=== PATIENT | male | born 1995 | race Caucasian/White ===

== ENCOUNTER 2017-09-12 20:34 | Emergency (ER) | payer BC, SELFPAY ==
[2017-09-12] VITALS (8 sets, daily range): BP systolic 112–130; BP diastolic 60–74; PULSE 58–94; RESP 16–20; TEMP 37.2; O2SAT 95–100; BMI 21.4
[2017-09-12] MEDS: 0.9% Normal Saline 1,000 ML 250 ML IV (21:02)
[2017-09-12] MEDS: Ondansetron 4 MG/2 ML Vial IV (21:03)
[2017-09-12] MEDS: Morphine 4 MG/ML Syringe IV ×2 (21:04→21:51)
--- NOTE | 2017-09-12 21:20 | RAD_ITS ---
STUDY: X-RAY - RIGHT SHOULDER REASON FOR EXAM: Male, 21 years old. WATER SKIING ACCIDENT, LEFT SHOULDER INJURY TECHNIQUE: 2 view(s) of the shoulder. COMPARISON: None. FINDINGS: Medial shoulder dislocation. Normal acromioclavicular joint. Normal acromion. Normal humeral head and visualized proximal humerus. The soft tissue structures are unremarkable. Normal visualized pulmonary apex. RAD/Shoulder min 2 Views IMPRESSION: Medial shoulder dislocation. Electronically Signed: Mansoor Mabyerry MD at 22:25 EDT , Service support ,
--- NOTE | 2017-09-12 21:41 | RAD_ITS ---
STUDY: X-RAY - LEFT SHOULDER REASON FOR EXAM: Male, 21 years old. Post reduction TECHNIQUE: 2 view(s) of the shoulder. COMPARISON: None. FINDINGS: Normal glenohumeral articulation. Normal acromioclavicular joint. Normal acromion. Normal humeral head and visualized proximal humerus. The soft tissue structures are unremarkable. Normal visualized pulmonary apex. RAD/Shoulder min 2 Views IMPRESSION: Successful reduction Electronically Signed: Mansoor Mayberry MD at 22:26 EDT , Service support ,
[2017-09-12] MEDS: 0.9% Normal Saline 1,000 ML 1000 ML IV (21:50)
[2017-09-12] MEDS: Propofol 200 MG/20 ML Vial IV BOLUS (22:00)
--- NOTE | 2017-09-12 22:37 | ED.VISSUMM ---
- ER Visit Summary Date of Service: 09/12/17 Chief Complaint: Left shoulder dislocation History of Present Illness: The patient is a [address] Feliz. He is right-hand dominant. Reports that while waterskiing today he fell and injured his left shoulder. He denies any other injuries. No loss of consciousness. Reports it is sharp, throbbing pain is 10 out of 10 with movement 9 out of 10 at rest. Denies any paresthesias distally. Physical Examination: Vitals: Stable. Afebrile. Neck: No vertebral tenderness. Full ROM without difficulty. Cleared by NEXUS criteria. Back: No vertebral tenderness. General: A&O x 3. NAD. Cardiovascular exam: Regular rate and rhythm, no murmur, rub or gallop. Respiratory exam: Chest nontender. No crepitus. Clear to auscultation bilaterally. No wheezes or stridor. Abdominal exam: Soft, nontender, nondistended, normal bowel sounds. No pain in RUQ or LUQ specifically. No peritoneal signs. Extremity: Obvious anterior dislocation of the left shoulder. He is neurovascular intact distal this.. Test Results: Left shoulder x-ray shows an anterior dislocation without fracture. Repeat x-ray shows this to be reduced without fracture. Emergency Department Course and Treatment: Patient had an IV placed. He was given morphine IV. He had procedural sedation undertaken with propofol and his shoulder was reduced. He tolerated this well. Treatment Plan: Patient be discharged in a sling and swath. Instructed to follow-up with Dr. Donovan in 1 week for another exam. Disposition: To home in improved and stable condition. Impression: 1. Left shoulder dislocation. 2. Procedural sedation. 3. Reduction left shoulder. This note was generated with [employer] dictation software. It may contain incorrect words, spelling, and punctuation that were not noted in review of the chart prior to signing ED Disposition - Plan for ED Patient: Disposition: Home or Assisted Living Chief Complaint: Disclocation Instructions: ED Dislocation Shoulder Redu Prescriptions: Hydrocodone/Acetaminophen [[place] 5-325 Tablet] 1 - 2 each PO 4X/DAY PRN PRN 3 Days #12 tablet PRN Reason: Pain Naproxen [Naprosyn] 500 mg PO BID #14 tablet Referrals: Alex Donovan MD [STAFF PHYSICIAN] - 1 Week
--- NOTE | 2017-09-12 22:41 | ED.DCSUM_ITS ---
- ER Visit Summary Date of Service: 09/12/17 Chief Complaint: Left shoulder dislocation History of Present Illness: The patient is a [address] Feliz. He is right-hand dominant. Reports that while waterskiing today he fell and injured his left shoulder. He denies any other injuries. No loss of consciousness. Reports it is sharp, throbbing pain is 10 out of 10 with movement 9 out of 10 at rest. Denies any paresthesias distally. Physical Examination: Vitals: Stable. Afebrile. Neck: No vertebral tenderness. Full ROM without difficulty. Cleared by NEXUS criteria. Back: No vertebral tenderness. General: A&O x 3. NAD. Cardiovascular exam: Regular rate and rhythm, no murmur, rub or gallop. Respiratory exam: Chest nontender. No crepitus. Clear to auscultation bilaterally. No wheezes or stridor. Abdominal exam: Soft, nontender, nondistended, normal bowel sounds. No pain in RUQ or LUQ specifically. No peritoneal signs. Extremity: Obvious anterior dislocation of the left shoulder. He is neurovascular intact distal this.. Test Results: Left shoulder x-ray shows an anterior dislocation without fracture. Repeat x-ray shows this to be reduced without fracture. Emergency Department Course and Treatment: Patient had an IV placed. He was given morphine IV. He had procedural sedation undertaken with propofol and his shoulder was reduced. He tolerated this well. Treatment Plan: Patient be discharged in a sling and swath. Instructed to follow-up with Dr. Donovan in 1 week for another exam. Disposition: To home in improved and stable condition. Impression: 1. Left shoulder dislocation. 2. Procedural sedation. 3. Reduction left shoulder. This note was generated with [employer] dictation software. It may contain incorrect words, spelling, and punctuation that were not noted in review of the chart prior to signing ED Disposition - Plan for ED Patient: Disposition: Home or Assisted Living Chief Complaint: Disclocation Instructions: ED Dislocation Shoulder Redu Prescriptions: Hydrocodone/Acetaminophen [[place] 5-325 Tablet] 1 - 2 each PO 4X/DAY PRN PRN 3 Days #12 tablet PRN Reason: Pain Naproxen [Naprosyn] 500 mg PO BID #14 tablet Referrals: Alex Donovan MD [STAFF PHYSICIAN] - 1 Week
[2017-09-12] MEDS: HYDROcodone Bitartrate/Apap 5/325 Tablet PO (23:15)
== END 2017-09-12 23:18 | disposition home or self-care (01) ==
PROVIDERS: Emergency Provider Emergency Medicine; Family Provider Family Medicine; PCP Family Medicine
DX: S43.085A Other dislocation of left shoulder joint, initial encounter (principal); W19.XXXA Unspecified fall, initial encounter; Y93.17 Activity, water skiing and wake boarding; Y92.838 Other recreation area as the place of occurrence of the external cause; Y99.8 Other external cause status
CPT/HCPCS: 23650; 73030; 96361; 96374; 96375; 99285; J7030; A4216; J2405

== ENCOUNTER 2017-10-30 07:30 | Outpatient (RCR) | payer BC, SELFPAY ==
--- NOTE | 2017-09-23 16:36 | HP.PTEVAL_ITS ---
Patient's Visit Information MARI ESPOSITO is a 21 year old M referred to Physical Therapy by Alex Donovan MD with a diagnosis of Anterior Dislocation of Left Shoulder. Date of Evaluation: 09/23/17 Physical Therapist: Marci Thao PT - Visit Plan Frequency: 2x /Week Duration: 3 Weeks Plan: Patient currently on 10# weight limit restriction and no reaching overhead. Therapeutic exercises and activities to target BUE strength, endurance , range of motion and flexibility, specifically scapular stabilizing muscles. Modalities and Manual as needed to decrease pain and increase ROM. Incorporate HEP to promote maintainence and independence. - Subjective Subjective: Patient presents in therapy with left shoulder weakness secondary to dislocation on 09/12/17 when water skiing. He reports occasional soreness with quick motions and soreness because not using shoulder as much. No numbness or tingling down the arm. After injury drove 3 hours to the hospital to put it into place. X-ray performed showing no break but plan for MRI in a few weeks after therapy. Doctor gave a 10# weight restriction and not to lift anything overhead. He still sleeps with a sling on and has trouble washing his back. Does not take medication, ice or heat to help relieve soreness. Patient would like to get strong enough to bow bustillo in the fall. 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 PMHx: Unremarkable; Broke Left elbow 10+ years ago. - Pain left shoulder Pain Intensity (Out of 10): 0 - Objective Posture: Sitting upright in chair; left shoulder inward rotation and right shoulder squared. Palpation: Tenderness to bicep tendon proximal insertion and pectoralis muscle toward insertion; No swelling noted; Good AC joint mobility. Strength: BUE grossly 5/5 except L shoulder ER 4-/5, L shoulder IR 4-/5, left shoulder abduction 4/5, rhomboids 4/5 bilaterally, lower trap 3+/5 bilaterally. Range of Motion: L shoulder flexion 130*, L shoulder abduction 135*, L shoulder extension 40*, L ER 50*, L IR 90*; R shoulder flexion 190*, R shoulder abduction 180*, R shoulder extension 80*, R ER 90*, R IR 95*; Good mobility of B scapula with moderate winging; PROM L shoulder increase in ROM 5* in abduction and flexion. Flexibility: Moderate tightness of Bilateral pectoralis muscles. Special Test: See below; Apprehension test positive for anterior instability - Special Tests L Shoulder External Rotation Lag Test - RC Tear: Negative L Shoulder Lift Off Test - Subscapular Tear: Negative L Shoulder Empty Can - SS: Negative L Shoulder Biceps Load Test - Labrum: Negative L Shoulder Apprehension Test - Anterior Instability: Positive - Goals Goal 1:: Patient will increase scapular stabilizing muscles grossly 4+/5 strength for improved scapular mobility and performance with functional mobility tasks Goal Time Frame: 2-4 Weeks Goal 2:: Patient will increase L shoulder mobility to match R for improved mobility. Goal Time Frame: 2-4 Weeks Goal 3:: Patient will demonstrate minimal scapular winging with repeated shoulder abduction for improved stability Goal Time Frame: 2-4 Weeks Goal 4:: Patient will maintain good posture for 5 minutes with no prompting Goal Time Frame: 2-4 Weeks Goal 5:: Patient will be independent with HEP Goal Time Frame: 2-4 Weeks - Rehabilitation Potential Physical Therapy Diagnosis: Muscle Weakness, Limited Range of Motion Rehabilitation Potential: Good - Anticipated Interventions Patient/Client Instruction: Educate patient on: Condition, Plan of Care For the Purpose of:: To increase ROM, To improve muscle performance and motor function, To improve ability to perform ADL's, To increase tolerance to activity /condition/position, To improve ability of physical actions for home/community/ work/leisure, To increase flexibility/ROM, To improve endurance, To prevent re- injury Therapeutic Exercise to Include: Strength training, Endurance training, Body mechanics, Postural training, Flexibilty training, Neuromotor development, Passive ROM, Active ROM, Scapular Strength/Stabilization For the Purpose of:: To increase ROM, To improve muscle performance and motor function, To improve performance and independence with ADL's, To improve ability of physical actions for home/community/work/leisure, To increase flexibility/ROM, To improve endurance, To prevent re-injury Functional Training to Include: ADL Training, Functional work training, Functional sports training For the Purpose of:: To improve muscle performance and motor function, To improve performance and independence with ADL's, To improve ability of physical actions for home/community/work/leisure, To prevent re-injury For the Purpose of:: To decrease pain, To decrease swelling/inflammation, To increase ROM Iontophoresis (with Dexamethozone, with Acetic acid): - not covered by insurance For the Purpose of:: To decrease pain, To decrease swelling/inflammation, To increase ROM Thank you for the opportunity to evaluate your patient. For Medicare and Medicare HMO plans, please review the plan of care and approve it. It will need to be FAXED BACK to us at [phone] for Medicare purposes. Please let me know if there are questions or concerns regarding this plan of care. Physician Signature: Date:
--- NOTE | 2017-10-30 07:53 | HP.PTDCSUM ---
HP - PT D/C Summary It has been my pleasure to treat MARI ESPOSITO under orders from Alex Donovan MD, for the diagnosis of Anterior Dislocation of Left Shoulder for a total of 6 visit(s). Discharge Date: Please see the following information for a summary of their discharge status. - Subjective Subjective: Pt reports, I feel like I am back to normal - Pain left shoulder Pain Intensity (Out of 10): 0 - Overall Improvement % Improvement: 100 - Objective Objective/Function: L shoulder pain: 0/10. L shoulder ROM: flex= 165, abd= 180, ER= 45, IR WNL. L shoulder MMT: 5/5 throughout. Pt is I with HEP. Rx goals achieved - Goals Goal 1:: Patient will increase scapular stabilizing muscles grossly 4+/5 strength for improved scapular mobility and performance with functional mobility tasks Goal 2:: Patient will increase L shoulder mobility to match R for improved mobility. Goal 3:: Patient will demonstrate minimal scapular winging with repeated shoulder abduction for improved stability Goal 4:: Patient will maintain good posture for 5 minutes with no prompting Goal 5:: Patient will be independent with HEP - Plan Plan: Discharge - D/C Information If there are questions or concerns regarding this patient's physical therapy, please feel free to call me at [phone]. Thank you for the referral of this patient. Sincerely, Mansoor Montenegro, PT,
== END 2017-10-30 10:36 | disposition home or self-care (01) ==
LOC: PT 07:30
PROVIDERS: Family Provider Family Medicine; PCP Family Medicine; Visit Provider Specialist
DX: S43.015D Anterior dislocation of left humerus, subsequent encounter (principal)
CPT/HCPCS: 97110; 97140; 97161; 97530

== ENCOUNTER → 2018-09-22 | Outpatient (CLI) | payer BC, SELFPAY ==
[2017-09-12 20:35] VITALS: BMI 21.4
[2018-09-22 15:23] LABS: Hematocrit 42.2 % (40-54); Hemoglobin 14.6 g/dl (13.0-16.5); Mean Corp Hgb Conc 34.6 g/gl (32-36); Mean Corpuscular Hgb 29.6 pg (27.0-32.0); Mean Corpuscular Volume 85.6 fL (80-94); Mean Platelet Vol. 10.2 fl (6.2-12.0); Platelet Count 222 K/mm3 (150-450); RBC Distribution Width CV 12.4 % (11.6-14.6); Red Blood Count 4.93 M/mm3 (4.6-6.2); White Blood Count 6.3 K/mm3 (4.4-11.0)
[2018-09-22 15:38] LABS: Vitamin B12 643 pg/mL (211-911)
[2018-09-22 15:41] LABS: Anion Gap 4 (5-15); BUN 14 mg/dL (7-18); BUN/Creat Ratio 15.1 RATIO (10-20); Chloride 107 mmol/L (98-107); Creatinine, Serum 0.92 mg/dL (0.70-1.30); EST Glomerular Filtration Rate 109 mL/min (>60); Est Glom Filt Rate - Afr Amer 132 mL/min (>60); Glucose 92 mg/dL (74-106); Potassium 3.6 mmol/L (3.5-5.1); Sodium Level 140 mmol/L (136-145); Thyroid Stim Hormone (TSH) 1.25 uIU/mL (0.358-3.74)
[2018-09-22 15:46] LABS: Scan Indicated on CBC? Y/N NO
== END | disposition home or self-care (01) ==
LOC: MFPLAB 14:15
PROVIDERS: Family Provider Family Medicine; PCP Family Medicine; Visit Provider Family Medicine
DX: F32.9 Major depressive disorder, single episode, unspecified (principal)
CPT/HCPCS: 36415; 80048; 82306; 82607; 84443; 85027

== ENCOUNTER → 2019-07-16 16:04 | Outpatient (CLI) | payer BC, SELFPAY ==
--- NOTE | 2019-07-16 16:10 | RAD_ITS ---
STUDY: X-RAY - LEFT TIBIA AND FIBULA REASON FOR EXAM: Male, 23 years old. PAIN PROXIMAL LEFT LOWER LEG MEDIALLY. TECHNIQUE: 2 view(s) of the tibia and fibula were obtained. COMPARISON: None. FINDINGS: Normal visualized tibia. Normal visualized fibula. There is no demonstrated acute fracture. The soft tissue structures are unremarkable. RAD/Tibia & Fibula 2 Views IMPRESSION: Normal x-ray examination of the tibia and fibula. Electronically Signed: Too Hylton MD at 17:07 EDT , Service support ,
== END ==
PROVIDERS: PCP Family Medicine; Referring Provider Family Medicine; Visit Provider Family Medicine
DX: M79.605 Pain in left leg (principal)
CPT/HCPCS: 73590

== ENCOUNTER 2021-07-09 03:24 | Emergency (ER) | payer OTHER, SELFPAY ==
[2021-07-09 03:24] VITALS: BP 123/69; PULSE 58; RESP 16; TEMP 36.7; O2SAT 100; BMI 27.5
--- NOTE | 2021-07-09 03:36 | EDS_ITS ---
HPI History of Present Illness Chief Complaint: Burn Narrative Narrative: 25-year-old male [id number] presenting with left hand burn. Patient states he picked up a hot log. He has moraes to the left thumb palmar surface and left index finger and palm. Patient tried to use aloe vera without relief. He has been icing it. He does not have any blistering. Its not numb. He took ibuprofen for pain prior to arrival. PFSH PFS Medical History no medical history Home Medications lidocaine 1 applic TOPICAL BID PRN #30 g 07/09/21 [Rx Last Taken Unknown] silver sulfadiazine 1 applic TOPICAL BID #50 g 07/09/21 [Rx Last Taken Unknown] Allergy/AdvReac Type Severity Reaction Status Date / Time No Known Allergies Allergy Verified 07/09/21 03:30 Surgical History no surgical history Social History Smoking Status: Never smoker ROS ROS ED Constitutional Constitutional ED: Denies chills or fever(s) Eyes Eyes: Denies blurry vision ENT ENT ED: Denies rhinorrhea or sore throat Cardiovascular Cardiovascular: Denies chest pain or palpitations Respiratory/Chest Respiratory/Chest: Denies cough or dyspnea Gastrointestinal Gastrointestinal: Denies abdominal pain or nausea Genitourinary Genitourinary ED: Denies dysuria or hematuria Musculoskeletal Musculoskeletal: Denies back pain, myalgias or neck pain Integumentary Reports other Details: Burn left hand Neurologic Neurologic: Denies headache(s) or weakness EXAM Physical Exam Const Vital Signs: 07/09/21 03:24 07/09/21 03:28 Temperature 98.1 F Temperature Source Oral Pulse Rate 58 L Respiratory Rate 16 Respiratory Effort Normal Non-Labored Blood Pressure 123/69 H Blood Pressure Mean 87 Pulse Ox 100 Oxygen Delivery Method Room Air Positive well nourished General Appearance ED: NAD HEENT normocephalic and atraumatic Eyes PERRL and EOMs intact bilaterally Resp normal respiratory effort and clear to auscultation bilaterally Cardio regular rate and regular rhythm Extremity Extremity Narrative: Left hand palmar surface laterally with a mixture of first and second-degree moraes with blistering at the palmar surface adjacent to the MCP and over the left thumb. Sensation is intact. No skin breaks. Left hand neurovascular intact brisk cap refill to all 5 fingers. Neuro oriented x3 Sensorium / Orientation: alert Psych mental status grossly normal Skin Skin Narrative: As described above MDM MDM MDM Narrative Medical decision making narrative: Patient can cover with silver sulfadiazine in the ER. He is counseled to use ibuprofen and Tylenol for pain. He is given a prescription for silver sulfadiazine as well as lidocaine cream which he can mix when he puts over his hand. He can put his hand into a rubber glove as well. He is counseled to ice this is much as possible for 15 minutes at a time. He is given referral to the burn center as needed. Patient stable for discharge. Impression: 1. First, second degree moraes to left Discharge Plan Triage Chief Complaint: Burn Dx/Rx/DC Orders Instructions: ED First- and Second-Degree Moraes ... Prescriptions: New silver sulfadiazine 1 % cream 1 applic topical BID Qty: 50 RF: 0 lidocaine 5 % ointment 1 applic topical BID PRN (Reason: pain) Qty: 30 RF: 0 Primary Care Provider: Sixto Florian Referrals: [facility] ([place]),[facility] [GROUP OF PHYSICIANS] - 3-5 Days Sixto Florian MD [Primary Care Provider] - Disposition Disposition: Home, Self Care
[2021-07-09] MEDS: Silver Sulfadiazine 1% Crm 50 gm Bottle 1 APPLIC TOPICAL (03:39)
== END 2021-07-09 03:49 | disposition home or self-care (01) ==
LOC: ED 03:44
PROVIDERS: Emergency Provider Student in an Organized Health Care Education/Training Program; PCP Family Medicine; Visit Provider Student in an Organized Health Care Education/Training Program
DX: T23.252A Burn of second degree of left palm, initial encounter (principal); X19.XXXA Contact with other heat and hot substances, initial encounter
CPT/HCPCS: 99283

== ENCOUNTER 2021-08-13 00:06 | Emergency (ER) | payer OTHER, SELFPAY ==
[2021-08-13 00:06] VITALS: BP 114/97; PULSE 81; RESP 16; TEMP 36.5; O2SAT 98; BMI 21.3
--- NOTE | 2021-08-13 00:15 | EDS_ITS ---
HPI History of Present Illness HPI Narrative: Patient presents with left shoulder pain that began tonight. Patient states it began suddenly. Patient states he swung his arm and his shoulder dislocated. Patient states he has dislocated his shoulder in the past approximately 3 to 4 years ago. Patient states his pain is sharp. Patient states his pain is worse with movement. Patient admits to some numbness and tingling in the fingers of his left hand. Patient denies any weakness. Patient denies any other injuries. Chief Complaint: Upper Extremity Injury Informant: patient Occured/Mechanism Comment: Swelling his left arm and felt his shoulder dislocate Onset/Context/Timing Context: Sudden Onset Timing: Continuous Quality of Pain: Sharp Location: Left shoulder Worsened by: Movement Relieved by: Nothing Associated Symptoms Associated Symptoms: Positive for Parasthesia; Negative for Weakness and Loss of Funtion [facility] Medical History Dislocation of shoulder, posterior, left, closed Home Medications lidocaine 1 applic TOPICAL BID PRN #30 g 07/09/21 [Rx Last Taken Unknown] silver sulfadiazine 1 applic TOPICAL BID #50 g 07/09/21 [Rx Last Taken Unknown] Allergy/AdvReac Type Severity Reaction Status Date / Time No Known Allergies Allergy Verified 07/09/21 03:30 Surgical History no surgical history no surgical history Social History Smoking Status: Never smoker ROS ROS ED Constitutional Constitutional ED: Denies chills or fever(s) Eyes Eyes: Denies blurry vision or change in vision ENT ENT ED: Denies rhinorrhea or sore throat Cardiovascular Cardiovascular: Denies chest pain or palpitations Respiratory/Chest Respiratory/Chest: Denies cough or dyspnea Gastrointestinal Gastrointestinal: Denies nausea or vomiting Genitourinary Genitourinary ED: Denies dysuria or hematuria Musculoskeletal Musculoskeletal: Denies back pain or neck pain Integumentary Denies abscess or rash Neurologic Neurologic: Denies headache(s) or weakness Allergic/Immunologic Allergic/Immunologic ED: Denies mouth swelling or urticaria EXAM Physical Exam Const Vital Signs: 08/13/21 00:06 Temperature 97.7 F L Temperature Source Temporal Pulse Rate 81 Respiratory Rate 16 Blood Pressure 114/97 H Blood Pressure Mean 102 Pulse Ox 98 Oxygen Delivery Method Room Air Positive well nourished and well developed General Appearance ED: well developed and NAD HEENT Reports moist mucous membranes normocephalic Neck full ROM and supple Extremity Extremity Narrative: There is tenderness and deformity of the left shoulder joint. Range of motion was limited in all motions of the left shoulder secondary to pain. There is no tenderness over the clavicle. There is no edema or ecchymosis. Sensation was intact to light touch in the radial, median, ulnar, and axillary areas. Strength is 5/5 in the radial, median, and ulnar areas. Radial pulses are equal bilaterally. Neuro oriented x3, CN's II-XII intact bilaterally, moves all extremities, no focal motor deficits and no sensory deficits noted Sensorium / Orientation: alert Motor Exam: strength 5/5 throughout Psych mental status grossly normal MDM MDM MDM Narrative Medical decision making narrative: Patient was given a dose of Dilaudid here. Patient was given a repeat dose of Dilaudid. X-rays of the left shoulder were obtained. There are 2 views. On my interpretation, it showed an anterior inferior dislocation of the left glenohumeral joint. There is no acute fracture. Radiologist also interpreted the x-ray and agrees. Patient was advised the need for sedation and reduction of the shoulder. Patient states she has had this done before. Patient was given the opportunity ask questions. He had no further questions. Patient is agreeable to sedation. Informed consent was obtained. Patient was placed on continuous cardiac and pulse oximeter monitors. Patient was placed on nasal cannula oxygen. Patient was given a total of 80 mg of propofol. Once the patient was asleep, the shoulder was reduced using traction countertraction technique. The shoulder was reduced adequately. Patient was placed in a sling and swath. Total time of sedation was 10 minutes. Repeat x-rays were obtained. There are 2 views. On my interpretation, there is good reduction of the previous dislocation. There is no acute fracture. Radiologist also interpreted the x-rays and agrees. Patient was instructed to maintain the sling and swath while awake. Patient was instructed to follow-up with his primary care physician in 5 to 7 days. Patient understood and was agreeable with the plan. All questions were answered. Procedures Other Procedures Procedure(s): Patient was placed on continuous cardiac and pulse oximeter monitors. Patient was given a dose of propofol. Patient was given 80 mg. After the patient was adequately sedated, the left glenohumeral joint was reduced using traction countertraction technique. Patient tolerated the procedure well. There were no hypoxic episodes. Patient was placed in a sling and swath. Total time of sedation was 10 minutes. Patient was neurovascularly intact after the procedure. Repeat x-rays were obtained and showed adequate reduction. Discharge Plan Triage Chief Complaint: Upper Extremity Injury ED Provider: Roebrt Tan Dx/Rx/DC Orders Clinical Impression: Anterior dislocation of left shoulder Instructions: ED Dislocation: Shoulder (Reduced) Prescriptions: No Action silver sulfadiazine 1 % cream 1 applic topical BID Qty: 50 RF: 0 lidocaine 5 % ointment 1 applic topical BID PRN (Reason: pain) Qty: 30 RF: 0 Primary Care Provider: Sixto Florian Referrals: Sixto Florian MD [Primary Care Provider] - 5-7 Days Disposition Disposition: Home, Self Care
--- NOTE | 2021-08-13 00:20 | RAD_ITS ---
EXAM: XR LEFT SHOULDER COMPLETE, 2 OR MORE VIEWS CLINICAL INDICATION: Injury/Pain TECHNIQUE: Two or more views of the left shoulder. This report was created using [employer] report generation technology. COMPARISON: None. FINDINGS: BONES/JOINTS: Anterior inferior dislocation left shoulder. No acute fracture. No sclerotic or destructive changes observed. SOFT TISSUES: Unremarkable. No soft tissue swelling or gas. No radiopaque foreign body. RAD/Shoulder min 2 Views IMPRESSION: Anterior inferior dislocation left shoulder. Electronically Signed: Raimundo Carlson MD at 1:01 EDT ,
[2021-08-13] MEDS: HYDROmorphone 0.5 MG/0.5 ML SYRINGE IV (00:29)
[2021-08-13] MEDS: HYDROmorphone 1 MG/ML Syringe 0.5 MG IV (01:27)
[2021-08-13 02:09] VITALS: BP 108/72; BP 110/78; BP 111/76; PULSE 76; PULSE 83; PULSE 85; RESP 16; RESP 18; RESP 20; O2SAT 100; O2SAT 96; O2SAT 97
--- NOTE | 2021-08-13 02:13 | RAD_ITS ---
EXAM: XR LEFT SHOULDER COMPLETE, 2 OR MORE VIEWS CLINICAL INDICATION: Post reduction. TECHNIQUE: Two or more views of the left shoulder. This report was created using [employer] report generation technology. COMPARISON: None. FINDINGS: BONES/JOINTS: Normal alignment of the left shoulder post reduction. No acute fracture. Preservation of the joint space. No sclerotic or destructive changes observed. SOFT TISSUES: See above. RAD/Shoulder min 2 Views IMPRESSION: Normal alignment of the left shoulder post reduction. Electronically Signed: Raimundo Carlson MD at 2:31 EDT ,
[2021-08-13 02:22] VITALS: BP 111/76; O2SAT 96
[2021-08-13 02:47] VITALS: BP 106/61; PULSE 77; RESP 16
[2021-08-13] MEDS: Propofol 200 MG/20 ML Vial IV BOLUS (02:55)
[2021-08-13 02:57] VITALS: BP 106/61; PULSE 77; RESP 16
== END 2021-08-13 02:57 | disposition home or self-care (01) ==
PROVIDERS: Emergency Provider Emergency Medicine; PCP Family Medicine; Referring Provider Emergency Medicine; Visit Provider Emergency Medicine
DX: S43.015A Anterior dislocation of left humerus, initial encounter (principal); X58.XXXA Exposure to other specified factors, initial encounter
CPT/HCPCS: 23650; 73030; 96374; 96376; 99152; 99283; J7030; A4216

== ENCOUNTER 2022-09-26 21:42 | Emergency (ER) | payer OTHER, SELFPAY ==
[2022-09-26 21:44] VITALS: BP 122/90; PULSE 99; RESP 18; TEMP 36.6; O2SAT 99; BMI 22.7
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
[2022-09-26] MEDS: fentaNYL 100 MCG/2 ML Ampul 50 MCG IM (22:11)
--- NOTE | 2022-09-26 22:35 | RAD_ITS ---
EXAM: XR LEFT SHOULDER COMPLETE, 2 OR MORE VIEWS CLINICAL INDICATION: postreduction -- PORT TECHNIQUE: Two or more views of the left shoulder. COMPARISON: 09/26/2022 at 2205 hours FINDINGS: BONES/JOINTS: Humeral head has been relocated into the glenoid fossa. Alignment is anatomic. No acute fracture. Preservation of the joint space. No sclerotic or destructive changes observed. SOFT TISSUES: Unremarkable. No soft tissue swelling or gas. No radiopaque foreign body. RAD/Shoulder min 2 Views IMPRESSION: Closed reduction of a left shoulder dislocation. Alignment is anatomic. Electronically Signed: Roscoe Baker MD at 23:20 EDT ,
== END 2022-09-26 22:52 | disposition home or self-care (01) ==
PROVIDERS: Emergency Provider Emergency Medicine; PCP Family Medicine; Visit Provider Emergency Medicine
DX: S43.015A Anterior dislocation of left humerus, initial encounter (principal); X50.9XXA Other and unspecified overexertion or strenuous movements or postures, initial encounter; Y93.89 Activity, other specified
CPT/HCPCS: 23650; 73030; 96372; 99282

== ENCOUNTER 2022-12-13 18:34 | Emergency (ER) | payer OTHER, SELFPAY ==
[2022-12-13 18:35] VITALS: BP 130/91; PULSE 87; RESP 18; TEMP 36.6; O2SAT 99; BMI 23.9
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
== END 2022-12-13 21:32 | disposition home or self-care (01) ==
PROVIDERS: Emergency Provider Emergency Medicine; PCP Family Medicine; Visit Provider Emergency Medicine
DX: S06.0X0A Concussion without loss of consciousness, initial encounter (principal); H53.8 Other visual disturbances; Y04.8XXA Assault by other bodily force, initial encounter
CPT/HCPCS: 70450; 99282; J7030

== ENCOUNTER → 2023-01-08 | Outpatient (CLI) | payer OTHER, SELFPAY ==
--- NOTE | 2023-01-08 11:44 | RAD_ITS ---
CLINICAL HISTORY: Male, 27 years old. Left shoulder instability. PROCEDURE: ARTHROGRAM - LEFT SHOULDER. CONSENT: The procedure as well as the benefits and possible complications including infection and bleeding were explained to the patient. Informed consent was obtained. FLUOROSCOPY TIME (if supplied): (36 seconds) minutes/seconds. 8.21 mGy Injection Information: 10 cc of dilute MR contrast Number of images obtained: 3 TECHNIQUE: (All elements of maximal sterile barrier technique followed, including US elements as applicable) The patient was in the supine position. The overlying skin was prepped and draped in usual sterile fashion. Following local anesthetic application and under direct fluoroscopic guidance, a 22-gauge spinal needle was placed into the shoulder joint. 2 cc of Isovue 300 was injected for confirmation. Following this, 10 cc of dilute MRI contrast was injected. The patient tolerated the procedure well. RAD/Arthrogram Shoulder w/ MRI IMPRESSION: Left shoulder arthrogram for MRI examination. The patient tolerated the procedure well. Electronically Signed: Maxime Dolan MD at 12:47 EDT ,
--- NOTE | 2023-01-08 11:56 | MRI_ITS ---
STUDY: MRI ARTHROGRAM OF THE LEFT SHOULDER REASON FOR EXAM: Male, 27 years old. Instability, multiple dislocations x 5 years. TECHNIQUE: 10 mL of dilute Clariscan contrast was injected into the left glenohumeral joint. MRI was obtained in all 3 orthogonal planes. In addition, a fat-suppressed T1-weighted sequence was performed with the patient''s arm in the abduction external rotation (ABER) position. COMPARISON: Left shoulder radiographs dated 09/26/2022. FINDINGS: Normal supraspinatus tendon. Normal infraspinatus tendon. Normal subscapularis tendon. Normal teres minor tendon. Normal supraspinatus muscle. Normal infraspinatus muscle. Normal subscapularis muscle. Normal teres minor muscle. There is a chronic Hill-Sachs deformity of the posterior superior humeral head (axial T1 series 2 image 7). 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 Normal biceps labral complex. Normal intracapsular long biceps tendon. Normal rotator interval. There is mild acromioclavicular arthrosis. There is a Type II morphology (curved), with a neutral orientation. There is no subacromial-subdeltoid bursal fluid. Normal visualized coracohumeral and coracoacromial ligaments. Normal quadrilateral space. Normal axillary space. Normal deltoid muscle. Normal trapezius muscle. MRI/Upper Ext Jt Only W/Contrast IMPRESSION: Chronic Hill-Sachs deformity of the posterior superior humeral head. 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 Mild acromioclavicular arthrosis. No rotator cuff tear. Electronically Signed: Donald Esquivel MD at 14:34 EDT ,
[2023-01-08] MEDS: Gadoterate Meglumine Diluted 10 ML, Iopamidol 5 ML, Lidocaine 1% (20 ml mdv) 5 ML, Epin... INTRAARTIC (12:10)
[2023-01-08] MEDS: Iopamidol 10 ML in Syringe 1 EACH 600 ML INTRAARTIC (12:10)
[2023-01-08] MEDS: Lidocaine 2% (5ml sdv) 5 ML VIAL.MPF INFILT (12:10)
--- NOTE | 2023-01-08 12:55 | PCM.OP.PRO ---
Procedure Report Date of Procedure: 01/08/23 Assessment & Plan Assessment/Plan (1) Instability of left shoulder joint: PLAN: PROCEDURE: Arthrogram-left shoulder ORDERING PROVIDER: Dr. Tran INDICATION: Male, 27 years old. Left shoulder instability. PROVIDER: Kriss HOLLINS PROCEDURE: CONSENT: The procedure as well as the benefits and possible complications including bleeding and infection were explained to the patient. Informed consent was obtained. TECHNIQUE: The patient was in the supine position. The overlying skin was prepped and draped in the usual sterile fashion. 2% lidocaine was injected for local anesthesia and under direct fluoroscopic guidance, a 22-gauge spinal needle was placed into the left shoulder. 2 cc of Isovue 300 was injected for confirmation. Following this, 10 cc of MRI contrast was injected. All elements of maximal sterile barrier technique followed. Patient tolerated procedure well. IMPRESSION: Successful left shoulder arthrogram. Procedures Radiology Radiology Xray Procedures: [id number] Arthrogram Shoulder
== END | disposition home or self-care (01) ==
LOC: RAD 11:41
PROVIDERS: PCP Family Medicine; Referring Provider Orthopaedic Surgery Sports Medicine; Visit Provider Orthopaedic Surgery Sports Medicine
DX: M25.312 Other instability, left shoulder (principal)
CPT/HCPCS: 23350; 73222; 77002; Q9967

== ENCOUNTER 2023-02-24 20:42 | Emergency (ER) | payer OTHER, SELFPAY ==
[2023-02-24 20:42] VITALS: BP 123/88; PULSE 84; RESP 18; TEMP 36.1; O2SAT 99; BMI 23.3
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
[2023-02-24] MEDS: fentaNYL 100 MCG/2 ML Ampul 75 MCG IM (22:34)
--- NOTE | 2023-02-24 23:00 | RAD_ITS ---
INDICATION: dislocation EXAMINATION/TECHNIQUE: X-RAY - LEFT XR Shoulder Min 2 Views 2 VIEWS COMPARISON: Left shoulder x-rays September 26, 2022. FINDINGS: SOFT TISSUES: No soft tissue swelling or gas. No radiopaque foreign body. BONES/JOINTS: No acute fracture or malalignment. Humeral head is anterior and inferior to the glenoid; anterior shoulder dislocation. No sclerotic or destructive changes observed. RAD/Shoulder min 2 Views IMPRESSION: Anterior shoulder dislocation. No appreciable fracture. This represents a recurrent dislocation. Consider follow-up MRI to assess for soft tissue injuries associated with instability. Electronically Signed: Raimundo March DO at 23:58 EST ,
--- NOTE | 2023-02-24 23:10 | RAD_ITS ---
INDICATION: postreduction EXAMINATION/TECHNIQUE: X-RAY - LEFT XR Shoulder Min 2 Views 2 VIEWS COMPARISON: February 24, 2023 left shoulder x-rays, 11:00 PM. FINDINGS: SOFT TISSUES: No soft tissue swelling or gas. No radiopaque foreign body. BONES/JOINTS: Postreduction images show normal glenohumeral alignment. There is a questionable small Hill-Sachs impaction fracture involving the humeral head. Glenoid without appreciable fracture. No fracture fragment. Acromioclavicular joint is normal. No sclerotic or destructive changes observed. RAD/Shoulder min 2 Views IMPRESSION: Normal glenohumeral alignment postreduction. Questionable small impaction fracture humeral head. Consider nonemergent MRI to assess for soft tissue pathology associated with instability. Electronically Signed: Raimundo March DO at 0:00 EST ,
[2023-02-25 00:09] VITALS: BP 120/62; PULSE 80; RESP 16; O2SAT 99
== END 2023-02-25 00:11 | disposition home or self-care (01) ==
PROVIDERS: Emergency Provider Emergency Medicine; PCP Family Medicine; Referring Provider Emergency Medicine; Visit Provider Emergency Medicine
DX: S43.015A Anterior dislocation of left humerus, initial encounter (principal); X50.0XXA Overexertion from strenuous movement or load, initial encounter
CPT/HCPCS: 23650; 73030; 96372; 99282

== ENCOUNTER 2023-02-27 09:46 | Day surgery (SDC) | payer OTHER, SELFPAY ==
[2023-02-27] VITALS (9 sets, daily range): BP systolic 71–114; BP diastolic 52–78; PULSE 43–67; RESP 12–16; TEMP 36.1–36.2; O2SAT 95–100; BMI 23.5
[2023-02-27] MEDS: Lactated Ringers 1,000 ML 15 ML IV (10:16)
--- NOTE | 2023-02-27 10:31 | HP.PCM_ITS ---
HPI - General HPI Narrative MARI ESPOSITO, is a 27 M who presents for left shoulder arthroscopy, stabilization. no changes to h and p. rab and narcotic counselling. post op restrictions, sling for 2 weeks. ok to proceed, left shoulder marked. MR#: [id number] Acct: [id number] Name: MARI ESPOSITO Rep #: [id number] : 1995 Provider: Dr. Kwadwo Tran MD Age/Sex: 27/M Location: [facility] [place] Status: Signed Intake Vital Signs 12/13/2317:35 Height 5 ft 6 in Weight: 148 lb 8 oz BMI 23.9 BP 130/91 H Respiration 18 Pulse 87 Temp 97.9 F Temp Source Temporal Pulse Oximetry (%) 99 Intake Visit Reasons: LEFT SHOULDER Chief Complaint: Left shoulder Accompanied by: Self Is patient in pain?: Yes Allergies No Known Allergies Allergy (Verified 01/21/23 13:57) Medications NK 09/26/22 [History Confirmed 01/21/23] PFSH Medical History Dislocation of shoulder, posterior, left, closed Instability of left shoulder joint Social History Smoking Status: Never smoker HPI LEFT SHOULDER Details: This documentation accurately reflects the service provided and the decisions made by me, Dr. Kwadwo Tran MD 01/21/23 1351. Part of today?s visit was documented by [ ], acting as scribe. MARI ESPOSITO is a 27 year old M here today for FU L shoulder MR arthrogram for instability. Patient works doing landscaping and mowing. He wishes to return back to that by next summer. The patient has persistent instability and feels like this is really affecting his quality of life. Ortho Exam General General: Yes no acute distress Neurologic: Yes alert and Yes oriented x3 Psychologic: Yes reasonable and appropriate Supplemental Info [facility] Imaging Services [address] [place] [address] Upper Ext Jt Only W/Contrast MR#: [id number] Acct: [id number] Name: MARI ESPOSITO Rep #: [id number] : 1995 M 27 From: Donald Esquivel MD PCP: Dr. Sixto Florian MD Status: REG CLI Study: Upper Ext Jt Only W/Contrast Date of Exam: 01/08/23 Exam# [id number] Ordering Dr: Kwadwo Tran MD STUDY: MRI ARTHROGRAM OF THE LEFT SHOULDER REASON FOR EXAM: Male, 27 years old. Instability, multiple dislocations x 5 years. TECHNIQUE: 10 mL of dilute Clariscan contrast was injected into the left glenohumeral joint. MRI was obtained in all 3 orthogonal planes. In addition, a fat-suppressed T1-weighted sequence was performed with the patient''s arm in the abduction external rotation (ABER) position. COMPARISON: Left shoulder radiographs dated 09/26/2022. FINDINGS: Normal supraspinatus tendon. Normal infraspinatus tendon. Normal subscapularis tendon. Normal teres minor tendon. Normal supraspinatus muscle. Normal infraspinatus muscle. Normal subscapularis muscle. Normal teres minor muscle. There is a chronic Hill-Sachs deformity of the posterior superior humeral head (axial T1 series 2 image 7). 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 Normal biceps labral complex. Normal intracapsular long biceps tendon. Normal rotator interval. There is mild acromioclavicular arthrosis. There is a Type II morphology (curved), with a neutral orientation. There is no subacromial-subdeltoid bursal fluid. Normal visualized coracohumeral and coracoacromial ligaments. Normal quadrilateral space. Normal axillary space. Normal deltoid muscle. Normal trapezius muscle. MRI/Upper Ext Jt Only W/Contrast IMPRESSION: Chronic Hill-Sachs deformity of the posterior superior humeral head. 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 Mild acromioclavicular arthrosis. No rotator cuff tear. Electronically Signed: Donald Esquivel MD at 14:34 EDT , Coding Level of Care Code Off vis,est,level 3 Diagnoses Instability of left shoulder joint M25.312 Assessment and Plan Assessment and Plan (1) Instability of left shoulder joint: Status: Acute Plan: 27 M L shoulder instability and labrum tear with small HS of humerus head. At this point the patient has failed a trial of at least a year of nonoperative management with persistent instability and signs of a labrum tear on the MRI. Surgical recommendation for this would be left shoulder arthroscopy, stabilization. The small Hill-Sachs would not likely need to be addressed. I see no obvious bony loss on the glenoid side either. We discussed the pros and cons risk and benefits of continued nonoperative management versus surgery. The patient like to go ahead with the operation and signed the consent form today. No further questions or concerns. Pros and cons risks and benefits were discussed with the patient including but not limited to infection, pain, stiffness, bleeding, damage to surrounding structures, neurovascular injury, recurrence or retear, failure or wear of hardware or fixation, instability, fracture, deep vein thrombosis and pulmonary embolism, anesthetic risks, , patient dissatisfaction, need for further surgery and other risks. Patient understood and wished to proceed with surgery, and signed the informed consent documentation. [facility] Medical History Dislocation of shoulder, posterior, left, closed Injury of head and neck Instability of left shoulder joint Wears contact lenses Home Medications NK 09/26/22 [History Last Taken Unknown] Allergy/AdvReac Type Severity Reaction Status Date / Time No Known Allergies Allergy Verified 02/27/23 10:15 Surgical History No history of previous surgery Social History Smoking Status: Never smoker Vital Signs Vital Signs Vital Signs: 02/27/23 10:17 02/27/23 10:17 Temperature 97.1 F L Temperature Source Temporal Pulse Rate 61 Respiratory Rate 12 Respiratory Pattern Normal Blood Pressure 114/52 L Blood Pressure Mean 72 Blood Pressure Source Monitor Blood Pressure Position Semi-Fowlers Blood Pressure Location Left Arm Pulse Ox 100 Oxygen Delivery Method Room Air Weight Weight: 145 lb 8.081 oz Body Mass Index (BMI) 23.5
[2023-02-27] MEDS: Cefazolin 2 GM in 0.9% Normal Saline (100mL Bag) 100 ML IV (11:16)
[2023-02-27] MEDS: Epinephrine (1 mg/ml) 1 MG/ML VIAL (11:39)
--- NOTE | 2023-02-27 12:51 | PCM.OPRPT ---
Problems Associated Problem List Diagnoses (1) Instability of left shoulder joint: Report of Operation Date of Procedure: 02/27/23 Pre-Operative Diagnosis: L shoulder instability labrum tear anteriorly Post-Operative Diagnosis: same Surgery/Procedure Performed:: L shoulder arthroscopy, stabilization labrum repair Surgeon: Kwadwo Tran Type of Anesthesia: Block,Regional and General Anesthesiologist: Jonas Vargas Estimated Blood Loss (mL): 50 Description of Procedure: Patient brought to the operating room theater. Placed supine on the table. 2 g IV Ancef administered prior to the start of the procedure. All bony prominences padded. General anesthesia induced. Patient transferred left side up lateral decubitus beanbag positioner axillary roll placed SCDs on the legs. Upper extremity placed in traction set up 10 pounds with traction with the arm in 45 degrees of abduction. Upper extremity prepped and draped in the usual sterile fashion with chlorhexidine-based prep solution allowing over 3 minutes drying time prior to draping. Preoperative timeout performed to confirm the site patient and the surgery. Began by inserting the arthroscope into the intra-articular portion of the shoulder through a standard arthroscopy portal. Made accessory portals anteriorly using cannulas 7 x 7 mm Arthrex cannulas through the rotator interval just posterior to the biceps tendon. I placed 2 of those cannulas. I have also placed a cannula posteriorly. I examined the full intra-articular extent of the shoulder. Undersurface the rotator cuff tendon was normal subscapularis was normal. Biceps root was normal. Normal glenoid cartilage and humeral head cartilage. There was a small superficial far superior laterally Hill-Sachs lesion by about 1.5 cm x 0.5 cm shallow. This was not engaging. Identified the labrum tear this was more of a anterior labrum periosteal sleeve avulsion ALSPA. I elevated the tissue using an elevator instrument anteriorly. I used shaver and jessika instrument to stimulate healing at the anterior aspect of the glenoid. There is no obvious glenoid bony defects. I used nitinol passing device with labrum tape in a simple suture configuration and I placed five 2.9 mm Arthrex biocomposite push lock anchors at the 5:00 430 3:00 230 and 2pm locations. The most superior suture I placed also through the superior glenohumeral ligament for some additional fixation and tightening anteriorly as the patient was having multiple dislocations with low-energy mechanisms. This was stable and solid to probing repair was nicely restored the bumper of tissue anteriorly at the labrum and performed an inferior to superior shift and anterior to posterior shift. Arthroscopy pictures taken and saved throughout the case onto the system. Case terminated wound thoroughly irrigated debrided skin cleaned with wet and dry dressing portal sites closed with 3-0 Monocryl sutures. Steri-Strips applied followed by Adaptic 4 x 4 gauze ABD dressing cloth tape with a sling for the upper extremity. Patient woken up from general anesthetic transferred off the operating table and taken to postanesthetic care unit in stable condition. All sponge needle answer counts were correct no complications. cpt 13350 Complications none Admit VTE Documentation VTE Present on Admission: No VTE Mechan Device Prophylaxis: SCD's VTE Pharm Prophylaxis ordered?: No Reason prophylaxis not ordered:: Treatment Not Indicated Procedures Musculoskeletal [id number]-29xxx: Other Procedure See Report
--- NOTE | 2023-02-27 12:59 | DCINST_ITS ---
Discharge Instructions Diet Discharge Diet: No restrictions Activity Ice area for (Minutes): 10 Lifting Restrictions: pendulum exercises, hand wrist elbow rom 4x/day Dressing / Incision Call your doctor if your incision/area has: Continuous Slow Oozing, Sudden Increased Bleeding, Increased Pain/ Swelling, Increased Redness, Foul Smelling Discharge and Swelling at the incision site Change Dressing in: leave in place till F/U Follow Up Care Please Follow Up With: Kwadwo Tran MD When: 2 days Test Results: Test results from this visit will be discussed in further detail at your follow- up appointment, if applicable. Discharge Plan Admission Attending Provider: Kwadwo Tran Primary Care Provider: Sixto Florian Discharge Orders/Prescriptions Prescriptions: New oxycodone-acetaminophen [Endocet] 5-325 mg tablet 1 tab PO Q4H MDD 6 PRN (Reason: pain) 5 Days Qty: 30 0RF Referrals / Follow Up: Sixto Florian MD [Primary Care Provider] - Kwadwo Tran MD [Med Staff - Active Staff] - Disposition Disposition (needs filled in before D/C Order can be placed): Home, Self Care
== END 2023-02-27 14:45 | disposition home or self-care (01) ==
LOC: SDC 09:47 → AC 09:48
PROVIDERS: PCP Family Medicine; Referring Provider Orthopaedic Surgery Sports Medicine; Visit Provider Orthopaedic Surgery Sports Medicine
PROC: (CPT 29805; principal; 2023-02-27 11:00)
DX: M25.312 Other instability, left shoulder (principal); S43.432A Superior glenoid labrum lesion of left shoulder, initial encounter; X58.XXXA Exposure to other specified factors, initial encounter
CPT/HCPCS: 29806; 01630; C1713; J7120; J2405

== ENCOUNTER 2023-06-05 10:00 | Outpatient (RCR) | payer OTHER, SELFPAY ==
--- NOTE | 2023-03-14 14:03 | HP.PTEVAL ---
Patient's Visit Information Visit Information Visit Information: MAIR ESPOSITO is a 27 year old M referred to Physical Therapy by Dr. Kwadwo Tran MD with a diagnosis of S/P L arthroscopy stabilization on 02-27-23. Date of Evaluation: 03/14/23 Physical Therapist: ANITHA Carmen Visit Plan Frequency: 2x /Week Duration: 12 Months Plan: 2X/ week for (elbow, wrist and neck AROM) Phase I PROM to (flexion) 135 degrees until week 6, and ER to 20 degrees Pendulums, ball squeezes, scapular retraction/shoulder rolls WEEK 4: SUB MAX isometrics (painfree) and S/L ER no weight w/towel, serratus 6 WEEKS ok to move to pain free PROM and full AROM (pulleys, stick), IR stretches with towel, finger ladder, Arm bike, ball stabilization on wall, ROWS, week 6 ER PROM 35-60 approx GOAL 8 Weeks neutral RC strength and RC strength and then progress to 12 weeks more strengthening out of neutral RANGE/sports specific Subjective Subjective: Pt had shoulder surgery 2 weeks ago (02-27-23) because he has dislocated his shoulder 6 times and his labrum was not good. said no weight lifting for 6 weeks. Pt reports that he did not have to take pain meds. 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 He is R handed. He is sleeping ok. He took the sling off during the day. He still sleeps with the sling on. Pain L shoulder pain: Pain Intensity (Out of 10): 0 Objective Objective: R handed: L shoulder 4 degrees ER PROM on the L and 135 degrees PROM flexion (no pain) Instructed pt in pendulums Balance/Special Test Scores Quick DASH Score: 29.5450 Goals Goal 1:: I HEP Goal Time Frame: 8-12 Weeks Goal 2:: Increase L shoulder AROM to full AROM in all planes with no pain by discharge Goal Time Frame: 8-12 Weeks Goal 3:: Increase L shoulder strength to be almost equal to the right by discharge Goal Time Frame: 8-12 Weeks Goal 4:: Return back to full work duties and full ADL's without pain Rehabilitation Potential Rehabilitation Potential: Good Anticipated Interventions Patient/Client Instruction: Educate patient on: Condition and Plan of Care For the Purpose of:: To decrease pain, To increase ROM, To improve nutrient delivery to tissue, To improve muscle performance and motor function, To improve ability to perform ADL's, To improve performance and independence with ADL's, To decrease level of supervision to perform tasks, To improve gait and locomotor functions, To improve health of tissue, To decrease soft tissue restriction and To increase flexibility/ROM Therapeutic Exercise to Include: Strength training, Postural training, Flexibilty training, Passive ROM, Active ROM and Scapular Strength/Stabilization For the Purpose of:: To decrease pain, To increase ROM, To improve nutrient delivery to tissue, To improve muscle performance and motor function, To improve ability to perform ADL's, To increase tolerance to activity/condition/position, To decrease level of supervision to perform tasks, To improve ability of physical actions for home/community/work/leisure, To improve health of tissue, To decrease soft tissue restriction and To increase flexibility/ROM Manual Therapy Techniques to Include: Passive ROM For the Purpose of:: To decrease pain, To increase ROM, To improve nutrient delivery to tissue, To improve muscle performance and motor function, To improve health of tissue, To decrease soft tissue restriction and To increase flexibility/ROM Cryotherapy (ice pack, ice massage): Yes Thermo therapy (hot pack): Yes For the Purpose of:: To decrease pain, To decrease swelling/inflammation, To increase ROM and To improve nutrient delivery to tissue Text: Thank you for the opportunity to evaluate your patient. For Medicare and Medicare HMO plans, please review the plan of care and approve it. It will need to be FAXED BACK to us at [phone] for Medicare purposes. For Medicare only, by signing this I certify the plan of care. Please let me know if there are questions or concerns regarding this plan of care. Physician Signature: Date:
--- NOTE | 2023-09-20 14:15 | HP.PT.NRP ---
Patient Information Patient Information: MARI ESPOSITO was seen in my office for initial evaluation on 03/14/23. The following Plan of Care was established for this patient: POC Established Initial Frequency: 2x /Week Initial Duration: 12 Months Anticipated Interventions Patient/Client Instruction: Educate patient on: Condition and Plan of Care For the Purpose of:: To decrease pain, To increase ROM, To improve nutrient delivery to tissue, To improve muscle performance and motor function, To improve ability to perform ADL's, To improve performance and independence with ADL's, To decrease level of supervision to perform tasks, To improve gait and locomotor functions, To improve health of tissue, To decrease soft tissue restriction and To increase flexibility/ROM Therapeutic Exercise to Include: Strength training, Postural training, Flexibilty training, Passive ROM, Active ROM and Scapular Strength/Stabilization For the Purpose of:: To decrease pain, To increase ROM, To improve nutrient delivery to tissue, To improve muscle performance and motor function, To improve ability to perform ADL's, To increase tolerance to activity/condition/position, To decrease level of supervision to perform tasks, To improve ability of physical actions for home/community/work/leisure, To improve health of tissue, To decrease soft tissue restriction and To increase flexibility/ROM Manual Therapy Techniques to Include: Passive ROM For the Purpose of:: To decrease pain, To increase ROM, To improve nutrient delivery to tissue, To improve muscle performance and motor function, To improve health of tissue, To decrease soft tissue restriction and To increase flexibility/ROM Cryotherapy (ice pack, ice massage): Yes Thermo therapy (hot pack): Yes For the Purpose of:: To decrease pain, To decrease swelling/inflammation, To increase ROM and To improve nutrient delivery to tissue Last Seen Last Seen: This patient was last seen in our office 06/05/23. Pertinent comments regarding their Physical therapy will appear below: DC PT At this point I will be discontinuing this patient from physical therapy. I would be happy to see this patient again in the future if found appropriate by the physician. Thank you! Shruti Malagon, ANITHA Balance/Gait/Functional tests Balance/Special Test Scores Quick DASH Score: 22.7215
== END 2023-06-05 19:00 | disposition home or self-care (01) ==
LOC: PT 10:00
PROVIDERS: PCP Family Medicine; Referring Provider Orthopaedic Surgery Sports Medicine; Visit Provider Orthopaedic Surgery Sports Medicine
DX: S43.015D Anterior dislocation of left humerus, subsequent encounter (principal); M25.312 Other instability, left shoulder
CPT/HCPCS: 97110; 97140; 97161